=== PATIENT | female | born 1985 | race Caucasian/White ===

== ENCOUNTER 2017-10-29 12:10 | Emergency (ER) | payer MEDICARE, OTHER ==
[~2017-10-29] VITALS: Ht 167.6 cm; Wt 84.1 kg
[~2017-10-29 12:10] MED LIST: DIVA250T4; HALO1TAB19 PO; QUET25TA PO
[2017-10-29] MEDS ORDERED: IBUPROFEN 400 MG TABLET PO ONE (13:15)
[2017-10-29 13:45] VITALS: BP 138/92
== END 2017-10-29 15:30 | disposition home or self-care (01) ==
LOC: EMS 12:14
DX: S52.121A Displaced fracture of head of right radius, initial encounter for closed fracture (principal); S52.131A Displaced fracture of neck of right radius, initial encounter for closed fracture; W18.30XA Fall on same level, unspecified, initial encounter; Y93.89 Activity, other specified; Y92.89 Other specified places as the place of occurrence of the external cause; Y99.8 Other external cause status
CPT/HCPCS: 99284

== ENCOUNTER 2018-05-08 21:44 | Emergency (ER) | payer MEDICARE, OTHER ==
[~2018-05-08] VITALS: Ht 172.7 cm; Wt 79.5 kg
[2018-05-08] MEDS ORDERED: VENL-193 PO (22:04)
[2018-05-08] MEDS ORDERED: DIVA-76 PO (22:04)
[2018-05-08] MEDS ORDERED: RISP2 PO (22:04)
[2018-05-08] MEDS ORDERED: LAMO100 PO (22:04)
[2018-05-08] MEDS ORDERED: NORE0.3520 PO (22:04)
[2018-05-08] MEDS ORDERED: KDUR10 PO (22:04)
[2018-05-08] MEDS ORDERED: RISP4 PO (22:04)
[2018-05-08] MEDS ORDERED: TRIH2TAB3 PO (22:04)
[2018-05-08] MEDS ORDERED: BENZ2TAB10 PO (22:04)
[2018-05-08] MEDS ORDERED: CLON.5 PO (22:04)
[2018-05-08 22:50] LABS: BASOPHILS % (AUTO) 0.1 % (0.0-2.0); EOSINOPHILS % (AUTO) 0.3 % (1.0-6.0); HEMATOCRIT 37.7 % (36-46); HEMOGLOBIN 12.8 g/dL (12.0-16.0); LYMPHOCYTES # (AUTO) 1.4 K/uL (1.0-4.8); LYMPHOCYTES % (AUTO) 15.9 % (22.0-44.0); MEAN CORPUSCULAR HEMOGLOBIN 29.3 pg (26.0-34.0); MEAN CORPUSCULAR HGB CONC 33.8 G/dL (31.0-37.0); MEAN CORPUSCULAR VOLUME 87 fL (80-100); MONOCYTES # (AUTO) 0.4 K/uL (0.1-1.0); MONOCYTES % (AUTO) 4.2 % (2.0-9.0); NEUTROPHILS # (AUTO) 6.8 K/uL (1.8-7.7); NEUTROPHILS % (AUTO) 79.5 % (40.0-70.0); PLATELET COUNT (AUTO) 241 K/uL (150-450); RED BLOOD CELL COUNT(AUTO) 4.35 MIL/uL (4.00-5.20); RED CELL DISTRIBUTION WIDTH 14.2 % (11.5-14.5)
[2018-05-08 22:59] LABS: ANION GAP 10 mmol/L (8-16); CARBON DIOXIDE 24 mmol/L (22-29); CHLORIDE 103 mmol/L (98-107); CREATININE 1.03 mg/dL (0.60-1.30); GLOMERULAR FILTR. RATE CALC > 60 mL/min (>60); GLUCOSE,RANDOM 119 mg/dL (70-110); POTASSIUM 4.1 mmol/L (3.5-5.1); SODIUM SERUM 137 mmol/L (136-145); UREA NITROGEN, BLOOD 11 mg/dL (7-18)
[2018-05-08 23:07] LABS: ALANINE AMINOTRANSFERASE 28 U/L (12-78); ALBUMIN 4.1 g/dL (3.4-5.0); ALKALINE PHOSPHATASE 112 U/L (46-116); ASPARTATE AMINOTRANSFERASE 19 U/L (15-37); BILIRUBIN,TOTAL 0.2 mg/dL (0.1-1.0); TOTAL PROTEIN, SERUM 8.5 g/dL (6.4-8.2); VALPROIC ACID 61 mcg/mL (50-100)
[2018-05-08] MEDS ORDERED: LORazepam 2 MG/ML VIAL IVP ONE (23:30)
[2018-05-08] MEDS ORDERED: LevETIRAcetam 1,000 MG in DEXTROSE 5%-WATER 100 ML IV ONE (23:30)
[2018-05-08] MEDS ORDERED: DIVALPROEX SODIUM 500 MG ER TABLET PO ONE (23:30)
[2018-05-08] MEDS ORDERED: VALPROIC ACID 250 MG/5 ML SYRUP UDCUP PO ONE (23:45)
[2018-05-09 01:43] LABS: APPEARANCE,URINE CLEAR (CLEAR); BILIRUBIN,URINE NEGATIVE (NEGATIVE); GLUCOSE, URINE (UA) NEGATIVE (NEGATIVE); KETONES,URINE NEGATIVE (NEGATIVE); LEUKOCYTE ESTERASE ,URINE NEGATIVE (NEGATIVE); NITRATE,URINE NEGATIVE (NEGATIVE); OCCULT BLOOD,URINE NEGATIVE (NEGATIVE); PH,URINE 6.5 (5.0-8.0); PROTEIN,URINE NEGATIVE (NEGATIVE); UROBILINOGEN,URINE 0.2 mg/dL (<=1.0)
[2018-05-09 02:02] LABS: BACTERIA,URINE Few /HPF (None Seen); RBC,URINE 0-2 /HPF (0-2); SQUAMOUS EPITHELIAL CELL,UR Few /LPF (None Seen); WBC,URINE 0-2 /HPF (0-5)
[2018-05-09 04:16] VITALS: BP 125/77
== END 2018-05-09 04:27 | disposition home or self-care (01) ==
LOC: EMS 21:46
DX: G40.909 Epilepsy, unspecified, not intractable, without status epilepticus (principal)
CPT/HCPCS: 36415; 70450; 71045; 80053; 80164; 81001; 84703; 85025; 96374; 96375; 99285; G0480; J0712; J2060; J7060; 96365

== ENCOUNTER 2019-04-01 18:36 | Emergency (ER) | payer MEDICARE, OTHER ==
[~2019-04-01] VITALS: Ht 175.3 cm; Wt 88.6 kg
[~2019-04-01 18:36] MED LIST changes: +BENZ2TAB10 PO; +CLON.5 PO; +DIVA-76 PO; -DIVA250T4; -HALO1TAB19 PO; +KDUR10 PO; +LAMO100 PO; +NORE0.3520 PO; -QUET25TA PO; +RISP2 PO; +RISP4 PO; +TRIH2TAB3 PO; +VENL-193 PO
[2019-04-01] MEDS ORDERED: KETOROLAC TROMETHAMINE 30 MG/ML VIAL IM ONE (19:15)
[2019-04-01 19:25] LABS: BASOPHILS % (AUTO) 0.3 % (0.0-2.0); EOSINOPHILS % (AUTO) 0.4 % (1.0-6.0); HEMATOCRIT 41.9 % (36-46); HEMOGLOBIN 13.5 g/dL (12.0-16.0); LYMPHOCYTES # (AUTO) 1.3 K/uL (1.0-4.8); LYMPHOCYTES % (AUTO) 11.4 % (22.0-44.0); MEAN CORPUSCULAR HEMOGLOBIN 30.1 pg (26.0-34.0); MEAN CORPUSCULAR HGB CONC 32.3 G/dL (31.0-37.0); MEAN CORPUSCULAR VOLUME 93 fL (80-100); MONOCYTES # (AUTO) 0.9 K/uL (0.1-1.0); MONOCYTES % (AUTO) 8.2 % (2.0-9.0); NEUTROPHILS # (AUTO) 9.1 K/uL (1.8-7.7); NEUTROPHILS % (AUTO) 79.7 % (40.0-70.0); PLATELET COUNT (AUTO) 244 K/uL (150-450); RED BLOOD CELL COUNT(AUTO) 4.49 MIL/uL (4.00-5.20); RED CELL DISTRIBUTION WIDTH 13.7 % (11.5-14.5)
[2019-04-01 19:48] LABS: ANION GAP 10 mmol/L (8-16); CALCIUM, TOTAL 9.6 mg/dL (8.8-10.5); CARBON DIOXIDE 25 mmol/L (22-29); CHLORIDE 100 mmol/L (98-107); CREATININE 1.03 mg/dL (0.60-1.30); GLOMERULAR FILTR. RATE CALC > 60 mL/min (>60); GLUCOSE,RANDOM 172 mg/dL (70-110); POTASSIUM 3.9 mmol/L (3.5-5.1); SODIUM SERUM 135 mmol/L (136-145)
[2019-04-01 19:58] LABS: ALANINE AMINOTRANSFERASE 21 U/L (12-78); ALBUMIN 3.7 g/dL (3.4-5.0); ALKALINE PHOSPHATASE 86 U/L (46-116); ASPARTATE AMINOTRANSFERASE 23 U/L (15-37); BILIRUBIN,TOTAL 0.4 mg/dL (0.1-1.0); HCG,QUANTITATIVE 4 mIU/mL (0-6); LIPASE 132 U/L (73-393); TOTAL PROTEIN, SERUM 7.8 g/dL (6.4-8.2)
[2019-04-01 20:07] LABS: UREA NITROGEN, BLOOD 14 mg/dL (7-18)
[2019-04-01 20:55] LABS: APPEARANCE,URINE CLEAR (CLEAR); GLUCOSE, URINE (UA) NEGATIVE (NEGATIVE); KETONES,URINE 15 mg/dL (NEGATIVE); LEUKOCYTE ESTERASE ,URINE SMALL (NEGATIVE); NITRATE,URINE POSITIVE (NEGATIVE); OCCULT BLOOD,URINE NEGATIVE (NEGATIVE); PH,URINE 5.5 (5.0-8.0); PROTEIN,URINE NEGATIVE (NEGATIVE)
[2019-04-01 21:04] LABS: BILIRUBIN,URINE PRELIM. POSITIVE (NEGATIVE)
[2019-04-01 21:13] LABS: BACTERIA,URINE Few /HPF (None Seen); RBC,URINE None Seen /HPF (0-2); WBC,URINE 0-2 /HPF (0-5)
[2019-04-01 21:15] VITALS: BP 116/78
[2019-04-01 21:15] LABS: SQUAMOUS EPITHELIAL CELL,UR Rare /LPF (None Seen)
== END 2019-04-01 22:24 | disposition home or self-care (01) ==
LOC: EMS 18:39
DX: R10.84 Generalized abdominal pain (principal); G10 Huntington's disease; Z79.899 Other long term (current) drug therapy
CPT/HCPCS: 36415; 74176; 80053; 80164; 81001; 83690; 84702; 85025; 96372; 99284; J1885; 51701

== ENCOUNTER 2022-04-22 09:55 | Emergency (ER) | payer MEDICARE, OTHER ==
[~2022-04-22] VITALS: Ht 172.7 cm; Wt 100.0 kg
[~2022-04-22 09:55] MED LIST changes: -BENZ2TAB10 PO; +BENZ2TAB76 PO; +CLON-592 PO; -CLON.5 PO; +DIVA-111 PO; -DIVA-76 PO; -KDUR10 PO; +POTA-92 PO; -RISP2 PO; +RISP2TAB45 PO; -RISP4 PO; +RISP4TAB73 PO
[2022-04-22] MEDS: PERTUSS(ACELL),DIPH,TET VAC/PF 0.5 ML SYRINGE IM. ONE (12:03)
[2022-04-22] MEDS: ACETAMINOPHEN 500 MG TABLET PO ONE (12:25)
[2022-04-22 13:16] VITALS: BP 116/71
== END 2022-04-22 14:09 | disposition home or self-care (01) ==
LOC: EMS 09:55
DX: S01.81XA Laceration without foreign body of other part of head, initial encounter (principal); S09.90XA Unspecified injury of head, initial encounter; W06.XXXA Fall from bed, initial encounter; Y93.89 Activity, other specified; Y92.89 Other specified places as the place of occurrence of the external cause; Y99.8 Other external cause status
CPT/HCPCS: 12011; 90471; 90715; 99283

== ENCOUNTER 2024-03-28 14:50 | Emergency (ER) | payer MEDICARE, OTHER ==
[~2024-03-28] VITALS: Ht 172.7 cm; Wt 109.5 kg
[~2024-03-28 14:50] MED LIST changes: +AMOX500C2 PO; -BENZ2TAB76 PO; +BENZ2TAB84 PO; +CEPH-558 PO; +DOCU-385 PO; +IBUP-1554 PO; +LAMO-24 PO; -LAMO100 PO; +OMEP20 PO; +ONDA-104 PO; -RISP4TAB73 PO; +RISP4TAB94 PO
[2024-03-28 15:18] VITALS: BP 105/56; PULSE 80; RESP 16; TEMP 98.7
[2024-03-28] MEDS: ACETAMINOPHEN/CODEINE 300-30 MG TABLET PO ONE (16:11)
[2024-03-28] MEDS: CEPHALEXIN MONOHYDRATE 500 MG CAPSULE PO ONE (16:11)
[2024-03-28] MEDS: KETOROLAC TROMETHAMINE 60 MG/2 ML VIAL IM ONE (16:12)
[2024-03-28] MEDS: LIDOCAINE 1% 10 ML VIAL SQ ONE (16:12)
[2024-03-28] MEDS ORDERED: IBUP-1554 PO (17:39)
[2024-03-28] MEDS ORDERED: CEPH-558 PO (17:39)
== END 2024-03-28 17:59 | disposition home or self-care (01) ==
LOC: EMS 14:50
DX: L03.031 Cellulitis of right toe (principal); G10 Huntington's disease
CPT/HCPCS: 99283; 10060; 96372; J1885; J3490